=== PATIENT | female | born 1975 | race African-American/Black ===

== ENCOUNTER 2017-02-08 15:31 | Emergency (ER) | payer OTHER ==
[~2017-02-08] VITALS: Ht 160 cm; Wt 79.6 kg
[~2017-02-08 15:31] MED LIST: AUGMENTIN875 MG PO; BACTRIM,SEPT1 TABLET PO; KEFLEX500 MG PO; KETOROLAC TROME10 MG PO; METFORMIN HCL500 MG PO; NOVOLIN N100 UNITS/ IM; NOVOLIN N100 UNITS/ SQ; PERCOCET 5/31 TABLET PO; TYLENOL PM1 CAPLET PO
[2017-02-08 16:52] LABS: POINT-OF-CARE METER ID UU13113800
[2017-02-08] MEDS ORDERED: CLEOCIN300 MG PO (17:07)
[2017-02-08] MEDS ORDERED: PERCOCET 5/31 TABLET PO (17:07)
[2017-02-08 18:13] VITALS: BP 136/83
== END 2017-02-08 18:15 | disposition home or self-care (01) ==
LOC: EME 15:31
PROVIDERS: Physician Assistant Medical
DX: L02.412 Cutaneous abscess of left axilla (principal); L02.214 Cutaneous abscess of groin; E11.9 Type 2 diabetes mellitus without complications; Z79.84 Long term (current) use of oral hypoglycemic drugs; F32.9 Major depressive disorder, single episode, unspecified; F17.200 Nicotine dependence, unspecified, uncomplicated
CPT/HCPCS: 82948; 87070; 87075; 87077; 87186; 87205; 99281; 99284

== ENCOUNTER 2017-09-04 16:06 | Emergency (ER) | payer OTHER ==
[~2017-09-04] VITALS: Ht 160 cm; Wt 7836.0 kg
[~2017-09-04 16:06] MED LIST changes: +CLEOCIN300 MG PO
[2017-09-04 17:01] LABS: HEMATOCRIT 43.8 % (36.0-46.0); HEMOGLOBIN 14.8 G/DL (11.9-15.5); MCH 29.1 PG (29.0-34.0); MCHC 33.8 G/DL (30.0-36.0); MCV 86.2 FL (83-99); PLATELET COUNT 331 K/uL (156-360); RBC DIS.WIDTH-CV 11.9 % (11.8-14.6); RBC DIS.WIDTH-SD 37.5 % (39-53); RED BLOOD COUNT 5.08 M/uL (3.80-5.20); WHITE BLOOD COUNT 11.5 K/uL (4.1-10.2)
[2017-09-04 17:14] LABS: CHLORIDE 100 mEq/L (99-109); POTASSIUM 3.7 mEq/L (3.7-5.4)
[2017-09-04 17:15] LABS: SODIUM 136 mEq/L (136-147)
[2017-09-04 17:16] LABS: GLUCOSE 286 mg/dL (70-99)
[2017-09-04 17:20] LABS: CREATININE 0.7 mg/dL (0.6-1.3); GFR ESTIMATE (CALCULATED) > 59 mL/min/
[2017-09-04 17:21] LABS: UREA NITROGEN (BUN) 14 mg/dL (9-23)
[2017-09-04 17:23] LABS: TROP-I INTERPRETATION NEGATIVE; TROPONIN-I < 0.01 ng/mL (0.0-0.30)
[2017-09-04 20:02] LABS: ALBUMIN 4.1 g/dL (3.2-4.8)
[2017-09-04 20:05] LABS: TOTAL PROTEIN 7.8 g/dL (6.4-8.3)
[2017-09-04 20:07] LABS: TOTAL BILIRUBIN 0.3 mg/dL (0.0-1.0)
[2017-09-04 20:08] LABS: ALKALINE PHOSPHATASE 87 IU/L (3-129)
[2017-09-04 20:10] LABS: AST (GOT) 15 IU/L (2-34)
[2017-09-04 20:11] LABS: ALT (GPT) 17 IU/L (3-49); DIRECT BILIRUBIN 0.1 mg/dL (0.0-0.3)
[2017-09-04 20:12] LABS: LIPASE 42 U/L (1.0-51.0)
[2017-09-04 22:26] VITALS: BP 106/68
== END 2017-09-04 22:28 | disposition home or self-care (01) ==
LOC: EME 16:06
DX: R07.9 Chest pain, unspecified (principal); R10.11 Right upper quadrant pain; R10.13 Epigastric pain; E11.9 Type 2 diabetes mellitus without complications; F32.9 Major depressive disorder, single episode, unspecified; F17.200 Nicotine dependence, unspecified, uncomplicated
CPT/HCPCS: 71046; 76705; 80048; 80076; 83690; 84484; 85027; 93005; 99281; 99284